=== PATIENT | female | born 1980 | race American Indian/Alaskan Native ===

== ENCOUNTER 2018-03-19 07:47 | Emergency (ER) | payer SELFPAY ==
[2018-03-19] MEDS ORDERED: NACL 0.9% 1000 ML 1,000 ML IV ONE (08:09)
[2018-03-19] MEDS ORDERED: SUBLIMAZE IV ONE (08:09)
[2018-03-19] MEDS ORDERED: ZOFRAN IV ONE (08:09)
--- NOTE | 2018-03-19 08:27 | Emergency Department Report ---
HPI - General Chief Complaint: Abdominal Pain Time Seen by Provider: 03/19/18 08:05 - HPI HPI: Room 24 Patient is a 38-year-old female presenting with a chief complaint of abdominal pain. The patient states she developed epigastric abdominal pain yesterday that was sharp and constant in nature. Patient admits to nausea and vomiting but denies diarrhea. Patient denies a history of fever. Patient gives her pain score 10/10 Location: Epigastrium Duration: Constant since yesterday Quality: Sharp Severity: 10/10 Modifying factors: [see above] Context: [see above] Mode of transportation: [not driving] ED Past Medical Hx - Past Medical History Previous Medical History?: Yes Hx of Cancer: Yes (Breast CA chemo/xrt 2015) - Surgical History Past Surgical History?: No Additional Surgical History: Gastric Bypass, lumpectomy - Family History Family history: no significant - Social History Smoking Status: Never Smoker Substance Use Type: None (denies illicit drug use), Alcohol (occasional) - Medications Home Medications: Home Medications Medication Instructions Recorded Confirmed Last Taken Type Oxycodone HCl/Acetaminophen 1 each PO TID 07/28/17 07/28/17 07/27/17 History [Percocet 10/325 mg] ED Review of Systems ROS: Stated complaint: ABD PAIN Other details as noted in HPI Constitutional: denies: fever Eyes: denies: eye pain ENT: denies: throat pain Respiratory: no symptoms reported Cardiovascular: denies: chest pain Endocrine: no symptoms reported Gastrointestinal: abdominal pain, nausea, vomiting. denies: diarrhea Genitourinary: denies: dysuria Musculoskeletal: denies: back pain Neurological: denies: headache Physical Exam - Physical Exam Vital Signs: Vital Signs 03/19/18 07:55 Temperature 97.6 F Pulse Rate 104 H Respiratory 18 Rate Blood Pressure 112/82 O2 Sat by Pulse 100 Oximetry Physical Exam: GENERAL: The patient is well-developed well-nourished female lying on stretcher appearing to be in moderate discomfort. [] HEENT: Normocephalic. Atraumatic. Extraocular motions are intact. Patient has moist mucous membranes. NECK: Supple. Trachea midline CHEST/LUNGS: Clear to auscultation. There is no respiratory distress noted. HEART/CARDIOVASCULAR: Regular. There is no tachycardia. There is no gallop rub or murmur. ABDOMEN: Abdomen is soft, with tenderness to palpation in the right upper quadrant, midepigastric and left upper quadrants. Lower abdomen is soft and nontender to palpation. Patient has normal bowel sounds. There is no abdominal distention. SKIN: There is no rash. There is no edema. There is no diaphoresis. NEURO: The patient is awake, alert, and oriented. The patient is cooperative. The patient has normal speech MUSCULOSKELETAL: There is no evidence of acute injury. ED Course Vital Signs 03/19/18 07:55 Temperature 97.6 F Pulse Rate 104 H Respiratory 18 Rate Blood Pressure 112/82 O2 Sat by Pulse 100 Oximetry - Consultations Consultation #1: 03/19/18 11:02 Surgery paged 03/19/18 11:[address] Trujillo- requested bariatric surgery. Consult given patient's history of gastric bypass. Call back if bariatric surgery is unavailable 03/19/18 12:[address] Trujillo- will evaluate patient 03/19/18 14:05 Dr Cassandra anderson Consultation #2: 03/19/18 11:[address] Becker's PA- Dr. Becker is at [facility] today in the OR and is currently unavailable Consultation #3: 03/19/18 15:20 [facility] transfer line called- no bariatric surgery at [facility] 03/19/18 15:26 [facility] transfer line called- will call back with physician ED Medical Decision Making - Lab Data Result diagrams: 03/19/18 08:41 03/19/18 08:41 Laboratory Tests 03/19/18 03/19/18 03/19/18 08:41 08:41 08:41 WBC 6.2 RBC 4.26 Hgb 12.9 Hct 39.0 MCV 92 MCH 30 MCHC 33 RDW 14.0 Plt Count 251 Lymph % (Auto) 22.3 [place] % (Auto) 7.3 Eos % (Auto) 0.4 Baso % (Auto) 0.7 Lymph # 1.4 [place] # 0.5 Eos # 0.0 Baso # 0.0 Seg Neutrophils % 69.3 Seg Neutrophils # 4.3 Sodium 141 Potassium 3.9 Chloride 103.7 Carbon Dioxide 25 Anion Gap 16 BUN 7 Creatinine 0.7 Estimated GFR > 60 BUN/Creatinine Ratio 10 Glucose 109 H Calcium 9.5 Total Bilirubin 0.70 AST 19 ALT < 5 L Alkaline Phosphatase 52 Total Creatine Kinase CK-MB (CK-2) CK-MB (CK-2) Rel Index Troponin T Total Protein 7.7 Albumin 4.3 Albumin/Globulin Ratio 1.3 Lipase 39 HCG, Qual Urine Color Urine Turbidity Urine pH Ur Specific [place] Urine Protein Urine Glucose (UA) Urine Ketones Urine Blood Urine Nitrite Urine Bilirubin Urine Urobilinogen Ur Leukocyte Esterase Urine WBC (Auto) Urine RBC (Auto) U Epithel Cells (Auto) 03/19/18 03/19/18 03/19/18 08:41 08:41 11:32 WBC RBC Hgb Hct MCV MCH MCHC RDW Plt Count Lymph % (Auto) [place] % (Auto) Eos % (Auto) Baso % (Auto) Lymph # [place] # Eos # Baso # Seg Neutrophils % Seg Neutrophils # Sodium Potassium Chloride Carbon Dioxide Anion Gap BUN Creatinine Estimated GFR BUN/Creatinine Ratio Glucose Calcium Total Bilirubin AST ALT Alkaline Phosphatase Total Creatine Kinase 124 CK-MB (CK-2) 1.2 CK-MB (CK-2) Rel Index 0.9 Troponin T < 0.010 Total Protein Albumin Albumin/Globulin Ratio Lipase HCG, Qual Negative Urine Color Yellow Urine Turbidity Clear Urine pH 8.0 H Ur Specific [place] 1.053 H Urine Protein <15 mg/dl Urine Glucose (UA) Neg Urine Ketones 20 Urine Blood Neg Urine Nitrite Neg Urine Bilirubin Neg Urine Urobilinogen 4.0 Ur Leukocyte Esterase Neg Urine WBC (Auto) < 1.0 Urine RBC (Auto) 2.0 U Epithel Cells (Auto) 4.0 - EKG Data -: EKG Interpreted by Co EKG shows normal: sinus rhythm Rate: normal - EKG Data When compared to previous EKG there are: previous EKG unavailable Interpretation: nonspecific ST-T wave [place] (T-wave inversion in lead V3) - Radiology Data Radiology results: report reviewed (CT abdomen and pelvis), image reviewed (CT abdomen and pelvis) [facility] [address] [place] [address] Cat Scan Report Signed Patient: EDWINA RAYGOZA MR#: [id number] : 1980 Acct:[id number] Age/Sex: 38 / F ADM Date: 03/19/18 Loc: ED Attending Dr: Ordering Physician: NADEEN HERNÁNDEZ MD Date of Service: 03/19/18 Procedure(s): CT abdomen pelvis w con Accession Number(s): [id number] cc: NADEEN HERNÁNDEZ MD CT pelvis with contrast: Abdominal pain. [place]-en-Y bypass and breast cancer. Following administration of contrast transverse images are obtained the lower chest to the ischium with coronal and sagittal 2-D reformatted images. Comparison made to prior exam on July 28, 2017. The visualized lung bases are clear. Surgical changes of the [place]-en-Y bypass are noted. The SMV has a swirled appearance wrapping to the left and anterior relative to the the SMA however no evidence of vascular or bowel obstruction is noted. The abdominal and retroperitoneal organs otherwise appear generally unremarkable. The bowel is unopacified and there is a moderate volume of fecal matter in the proximal colon. The appendix is not visualized. The abdominal aorta and its branches appear generally unremarkable. There is no adenopathy. The patient reproductive organs are present. The findings described above appear generally unchanged from her prior examination. Impressions: 1. Gastric bypass changes consistent with [place]-en-Y stable since prior exam. 2. Possible internal hernia with no evidence of obstruction generally unchanged from prior exam. Transcribed By: LIA Dictated By: BEKAH MARES MD Electronically Authenticated By: BEKAH MARES MD Signed Date/Time: 03/19/18 1023 DD/ 1011 TD/TT: 03/19/18 1023 - Differential Diagnosis pancreatitis, gastritis, small bowel destruction, cholecystitis Critical care attestation.: If time is entered above; I have spent that time in minutes in the direct care of this critically ill patient, excluding procedure time. ED Disposition Clinical Impression: Acute abdominal pain Disposition: -07 LEFT AGAINST MED ADVICE Is pt being admited?: No Does the pt Need Aspirin: No Condition: Undetermined Instructions: Abdominal Pain (ED) Referrals: PRIMARY CARE, [Primary Care Provider] - 3-5 Days Time of Disposition: 15:59 (patient left AMA)
[2018-03-19] MEDS ORDERED: MORPHINE IV ONE (08:47)
[2018-03-19] MEDS ORDERED: DILAUDID IV ONE ×4 (08:48→14:59)
[2018-03-19 08:51] LABS: Basophils % (Auto) 0.7 % (0.0-1.8); Eosinophils % (Auto) 0.4 % (0.0-4.3); Hemoglobin 12.9 gm/dl (10.1-14.3); Lymphocytes # (Auto) 1.4 K/mm3 (1.2-5.4); Lymphocytes % (Auto) 22.3 % (13.4-35.0); Mean Corpuscular HGB Conc 33 % (30-34); Mean Corpuscular Hemoglobin 30 pg (28-32); Mean Corpuscular Volume 92 fl (79-97); Monocytes # (Auto) 0.5 K/mm3 (0.0-0.8); Monocytes % (Auto) 7.3 % (0.0-7.3); Platelet Count 251 K/mm3 (140-440); Red Blood Count 4.26 M/mm3 (3.65-5.03)
[2018-03-19 09:05] LABS: Creatine Kinase MB 1.2 ng/mL (0.0-4.0)
[2018-03-19 09:07] LABS: Albumin 4.3 g/dL (3.9-5); BUN/Creatinine Ratio 10; Blood Urea Nitrogen 7 mg/dL (7-17); Calcium 9.5 mg/dL (8.4-10.2); Hemolysis Index 7
[2018-03-19 09:14] LABS: Alanine Aminotransferase < 5 units/L (7-56)
[2018-03-19] MEDS ORDERED: BENADRYL IV ONE (09:43)
[2018-03-19] MEDS ORDERED: BENADRYL ONE (09:46)
--- NOTE | 2018-03-19 10:41 | Cat Scan Report ---
CT pelvis with contrast: Abdominal pain. [place]-en-Y bypass and breast cancer. Following administration of contrast transverse images are obtained the lower chest to the ischium with coronal and sagittal 2-D reformatted images. Comparison made to prior exam on July 28, 2017. The visualized lung bases are clear. Surgical changes of the [place]-en-Y bypass are noted. The SMV has a swirled appearance wrapping to the left and anterior relative to the the SMA however no evidence of vascular or bowel obstruction is noted. The abdominal and retroperitoneal organs otherwise appear generally unremarkable. The bowel is unopacified and there is a moderate volume of fecal matter in the proximal colon. The appendix is not visualized. The abdominal aorta and its branches appear generally unremarkable. There is no adenopathy. The patient reproductive organs are present. The findings described above appear generally unchanged from her prior examination. Impressions: 1. Gastric bypass changes consistent with [place]-en-Y stable since prior exam. 2. Possible internal hernia with no evidence of obstruction generally unchanged from prior exam.
[2018-03-19 11:59] LABS: Bilirubin,Urine NEG (Negative); Blood,Urine NEG (Negative); Color,Urine Yellow (Yellow); Protein,Urine <15 mg/dL mg/dL (Negative); WBC,Urine < 1.0 /HPF (0.0-6.0)
--- NOTE | 2018-03-19 13:44 | Consultation ---
History of Present Illness Consult date: 03/19/18 Chief complaint: abdominal pain - History of present illness History of present illness: 38 yo F s/p Laparoscopic RNY gastric bypass in 2006 at [facility] presents for c/o epigastric abdominal pain for the last 24 hours. She states the pain started yesterday, feels like gas pains, and has gradually gotten worse. The pain does not radiate and is not associated with food. She has lost over 100 lbs since the surgery. She does not smoke. She is passing flatus and having bowel movements. Last BM was this am. She had associated nausea and emesis of clear fluid this am. She has had pain like this in the past in Jul 2017 for which she was seen by Dr. Gann at [facility]. The patient was found to have a nonobstructing internal hernia on CT scan A/P. A diagnostic laparoscopy was recommended to the patient but she refused surgery. Her abdomen remained benign and she was having bowel function. She was discharged with instructions to follow up with bariatric surgery. She has not followed up. \ Past History Past Medical History: other (obseity) Past Surgical History: Other (Lap RNY Gastric bypass, tubal ligation) Social history: no significant social history, alcohol abuse (social) Family history: no significant family history Medications and Allergies Allergies Allergy/AdvReac Type Severity Reaction Status Date / Time No Known Allergies Allergy Unverified 07/28/17 03:23 Home Medications Medication Instructions Recorded Confirmed Last Taken Type Oxycodone HCl/Acetaminophen 1 each PO TID 07/28/17 07/28/17 07/27/17 History [Percocet 10/325 mg] Review of Systems All systems: negative (10 pt ROS performed and negative except for that listed in HPI) Exam Vital Signs Temp Pulse Resp BP Pulse Ox 97.6 F 104 H 18 112/82 100 03/19/18 07:55 03/19/18 07:55 03/19/18 07:55 03/19/18 07:55 03/19/18 07:55 Narrative exam: Gen: AAOx3. NAD ENT: no scleral icterus or conjunctival pallor CV: S1, S2+ Resp: even and unlabored Abd: soft, ND, + epigastric tenderness to deep palpation. No r/r/g. well healed surgical scars Ext: no c/c/e Results - Labs 03/19/18 08:41 03/19/18 08:41 Abnormal lab results 03/19/18 03/19/18 Range/Units 08:41 11:32 Glucose 109 H (65-100) mg/dL ALT < 5 L (7-56) units/L Urine pH 8.0 H (5.0-7.0) Ur Specific [place] 1.053 H (1.003-1.030) Diabetes panel 03/19/18 Range/Units 08:41 Sodium 141 (137-145) mmol/L Potassium 3.9 (3.6-5.0) mmol/L Chloride 103.7 (98-107) mmol/L Carbon Dioxide 25 (22-30) mmol/L BUN 7 (7-17) mg/dL Creatinine 0.7 (0.7-1.2) mg/dL Glucose 109 H (65-100) mg/dL Calcium 9.5 (8.4-10.2) mg/dL AST 19 (5-40) units/L ALT < 5 L (7-56) units/L Alkaline Phosphatase 52 (35-129) units/L Total Protein 7.7 (6.3-8.2) g/dL Albumin 4.3 (3.9-5) g/dL Calcium panel 03/19/18 Range/Units 08:41 Calcium 9.5 (8.4-10.2) mg/dL Albumin 4.3 (3.9-5) g/dL Pituitary panel 03/19/18 Range/Units 08:41 Sodium 141 (137-145) mmol/L Potassium 3.9 (3.6-5.0) mmol/L Chloride 103.7 (98-107) mmol/L Carbon Dioxide 25 (22-30) mmol/L BUN 7 (7-17) mg/dL Creatinine 0.7 (0.7-1.2) mg/dL Glucose 109 H (65-100) mg/dL Calcium 9.5 (8.4-10.2) mg/dL Adrenal panel 03/19/18 Range/Units 08:41 Sodium 141 (137-145) mmol/L Potassium 3.9 (3.6-5.0) mmol/L Chloride 103.7 (98-107) mmol/L Carbon Dioxide 25 (22-30) mmol/L BUN 7 (7-17) mg/dL Creatinine 0.7 (0.7-1.2) mg/dL Glucose 109 H (65-100) mg/dL Calcium 9.5 (8.4-10.2) mg/dL Total Bilirubin 0.70 (0.1-1.2) mg/dL AST 19 (5-40) units/L ALT < 5 L (7-56) units/L Alkaline Phosphatase 52 (35-129) units/L Total Protein 7.7 (6.3-8.2) g/dL Albumin 4.3 (3.9-5) g/dL - Imaging CT scan - abdomen: report reviewed, image reviewed CT scan - pelvis: report reviewed, image reviewed Assessment and Plan 38 yo F with abdominal pain 1. hx of gastric bypass 2. internal hernia - NONOBSTRUCTING on CT scan A/P Ct Scan reviewed and images and report compared to Ct A/P from 07/2017. There is no change in swirling of the SMA/SMV mesentery. There is no bowel obstruction. No free fluid or free air. The patient has stable vital signs, normal WBC and electrolytes. She does not have evidence of peritonitis on exam. Plan: The patient is stable without evidence of obstruction of CT scan. However, she does have an internal hernia related to a history of RNY gastric bypass. I feel that her repeated epigastric abdominal pain may be secondary to internal hernia. Because she is stable and there is no evidence of obstruction, I recommend the patient be evaluated by a bariatric surgeon for possible diagnostic laparoscopy and reduction of the internal hernia. Per ER we do not have bariatric surgery currently available at the hospital and therefore, the patient should be transferred to a facility with bariatric surgery service. I discussed this with Dr. Tsai. I discussed this with the patient at great length. Her was present in the room. I explained to her that although this is not an emergency, she will possible need intervention because the finding of an internal hernia on Ct scan. I explained that since this is not an emergency, it is best that she is evaluated and treated by bariatric surgery. She understands and all questions were answered. The patient stated that she was feeling better and that she was considering leaving because she has a flight tonight and will return Thursday. I advised her to stay and be transferred. She will think about the options and make a decision. She understands that her condition could worsen.
[2018-03-19] MEDS ORDERED: NORCO 5/325 ONE (14:32)
[2018-03-19] MEDS ORDERED: NORCO 5/325 PO ONE (14:42)
[2018-03-19 15:58] VITALS: BP 97/58
== END 2018-03-19 15:58 | disposition left against medical advice (07) ==
LOC: ED 07:47
DX: R10.13 Epigastric pain (principal); R11.2 Nausea with vomiting, unspecified
CPT/HCPCS: 36415; 74177; 80053; 81001; 82550; 82553; 83690; 84484; 84703; 85025; 93005; 93010; 96361; 96374; 96375; 96376; 99284; J1170; J1200; J2405; J3010; J7030; Q9967

== ENCOUNTER 2019-05-25 18:00 | Emergency (ER) | payer OTHER ==
--- NOTE | 2019-05-25 18:09 | Emergency Department Report ---
HPI - General Chief Complaint: Arrhythmia/Palpitations Time Seen by Provider: 05/25/19 18:06 - HPI HPI: 39-year-old -[place] female presents to the emergency department with a complaint of palpitations with a rapid heart rate and some shortness of breath. She says that this has been going on all day. She says that she has had these symptoms previously but they were never this bad and she thought they were related to anxiety and she has never seen a physician or been to the emergency department regarding them. She has a past medical history of breast cancer in 2013 that is currently in remission and gastric bypass in 2006. She has not ta rosendo anything for her symptoms prior to presentation. She denies any tobacco or illicit drug use. No primary care physician. ED Past Medical Hx - Past Medical History Additional medical history: Breast CA, gastric bypass - Surgical History Additional Surgical History: Gastric Bypass, lumpectomy - Social History Smoking Status: Never Smoker Substance Use Type: None (denies illicit drug use), Alcohol (occasional) - Medications Home Medications: Home Medications Medication Instructions Recorded Confirmed Last Taken Type Oxycodone HCl/Acetaminophen 1 each PO TID 07/28/17 07/28/17 07/27/17 History [Percocet 10/325 mg] ED Review of Systems ROS: Stated complaint: RAPID HEART BEAT Other details as noted in HPI Comment: All other systems reviewed and negative Constitutional: denies: chills, fever Eyes: denies: eye pain, vision change ENT: denies: ear pain, throat pain Respiratory: shortness of breath. denies: cough Cardiovascular: palpitations. denies: chest pain, edema Gastrointestinal: denies: abdominal pain, vomiting Genitourinary: denies: dysuria, discharge Musculoskeletal: denies: back pain, arthralgia Skin: denies: rash, lesions Neurological: denies: headache, weakness Physical Exam - Physical Exam Physical Exam: GENERAL: The patient is well-developed well-nourished. HENT: Normocephalic. Atraumatic. Patient has moist mucous membranes. EYES: Extraocular motions are intact. NECK: Supple. Trachea is midline. CHEST/LUNGS: Clear to auscultation. There is no respiratory distress noted. HEART/CARDIOVASCULAR: Regular. There is no tachycardia. There is no murmur. ABDOMEN: Abdomen is soft, nontender. Patient has normal bowel sounds. There is no abdominal distention. SKIN: Skin is warm and dry. NEURO: The patient is awake, alert, and oriented. The patient is cooperative. The patient has no focal neurologic deficits. Normal speech. MUSCULOSKELETAL: There is no tenderness or deformity. There is no evidence of acute injury. ED Medical Decision Making - Lab Data Result diagrams: 05/25/19 18:18 05/25/19 18:18 - EKG Data -: EKG Interpreted by Me EKG shows normal: sinus rhythm, axis, intervals, QRS complexes, ST-T waves Rate: tachycardia (108 bpm) - EKG Data When compared to previous EKG there are: previous EKG unavailable Interpretation: normal EKG (with tachy 108 bpm) - Radiology Data Radiology results: image reviewed interpreted by me: Chest x-ray does not show any acute process. There are no pleural effusions, obvious pneumonia and there is no pneumothorax. - Medical Decision Making This patient presents with the complaint of some palpitations and intermittent shortness of breath. She initially arrived with a heart rate of about 170. However her heart rate came down to about 110 at a time she made it to ER bed 18. Her EKG shows some sinus tachycardia with a heart rate of about 108. There is no signs of ST elevation [place] or dysrhythmia. Chest x-ray is unremarkable. Patient labs have been unremarkable CBC, metabolic panel, d-dimer, troponin and thyroid function. Patient was reevaluated multiple times over about 2 hours and there was no return of any tachycardia. However, we attempted to ambulate the patient around the emergency department and the patient's heart rate shoots up to about 150-160 bpm whenever she stands, walks, or exerts herself. For this reason, I spoke with cardiology, who recommended a 23 hour observation stay. I later found out that the patient has [employer] insurance. I spoke with Dr. Crawford of the [facility] transfer line and the patient was accepted for transfer to [facility] [place] under Dr Carlson. - Differential Diagnosis anemia, hyperthyroidism, dysrhythmia, hypoglycemia Critical Care Time: No Critical care attestation.: If time is entered above; I have spent that time in minutes in the direct care of this critically ill patient, excluding procedure time. ED Disposition Clinical Impression: Palpitations, Tachycardia Disposition: DC/TX-70 ANOTHER TYPE HLTHCARE Is pt being admited?: No Condition: Fair Referrals: PRIMARY CARE, [Primary Care Provider] - 3-5 Days
[2019-05-25 18:37] LABS: Basophils % (Auto) 0.6 % (0.0-1.8); Eosinophils # (Auto) 0.1 K/mm3 (0.0-0.4); Eosinophils % (Auto) 3.3 % (0.0-4.3); Hematocrit 38.7 % (30.3-42.9); Hemoglobin 12.6 gm/dl (10.1-14.3); Lymphocytes # (Auto) 1.6 K/mm3 (1.2-5.4); Lymphocytes % (Auto) 38.6 % (13.4-35.0); Mean Corpuscular HGB Conc 33 % (30-34); Mean Corpuscular Volume 93 fl (79-97); Monocytes # (Auto) 0.5 K/mm3 (0.0-0.8); Monocytes % (Auto) 11.8 % (0.0-7.3); Platelet Count 223 K/mm3 (140-440); Red Blood Count 4.17 M/mm3 (3.65-5.03); Red Cell Distribution Width 15.2 % (13.2-15.2)
[2019-05-25 18:46] LABS: INR 0.82 (0.87-1.13)
[2019-05-25 19:03] LABS: Alanine Aminotransferase 13 units/L (7-56); Albumin 3.7 g/dL (3.9-5); BUN/Creatinine Ratio 11; Blood Urea Nitrogen 11 mg/dL (7-17); Calcium 8.9 mg/dL (8.4-10.2); Hemolysis Index 19
[2019-05-25] MEDS ORDERED: SODIUM CHLORIDE 0.9% 1000 ML 1,000 ML IV ONE (19:04)
--- NOTE | 2019-05-25 19:06 | XRay Report ---
CHEST 1 VIEW INDICATION: Palpitations. COMPARISON: 07/28/2017 FINDINGS: Support devices: None. Heart: Within normal limits. Lungs/Pleura: No acute air space or interstitial disease. Additional findings: None. IMPRESSION: 1. No acute findings. Signer Name: Matthew Morales MD Signed: 05/25/2019 7:01 PM Workstation Name: [id number]
[2019-05-25] MEDS ORDERED: MORPHINE 4 MG/1 ML INJ IV ONE ×2 (19:24→21:59)
[2019-05-25 21:10] LABS: Bilirubin,Urine NEG (Negative); Blood,Urine NEG (Negative); Color,Urine Yellow (Yellow); Mucus,Urine FEW /HPF; Protein,Urine <15 mg/dL mg/dL (Negative); Urobilinogen,Urine < 2.0 mg/dL (<2.0); WBC,Urine < 1.0 /HPF (0.0-6.0)
[2019-05-25 21:23] LABS: Amphetamine Screen,Urine PRESUMPTIVE NEGATIVE; Benzodiazepines Screen,Urine PRESUMPTIVE NEGATIVE; Cannabinoid Screen,Urine PRESUMPTIVE NEGATIVE; Cocaine Screen,Urine PRESUMPTIVE NEGATIVE; Methadone Screen,Urine PRESUMPTIVE NEGATIVE; Opiate Screen,Urine PRESUMPTIVE NEGATIVE
[2019-05-25 21:53] VITALS: BP 123/79
== END 2019-05-25 22:38 | disposition other institution (70) ==
LOC: ED 18:00
DX: R00.0 Tachycardia, unspecified (principal); R00.2 Palpitations; Z98.890 Other specified postprocedural states; Z79.899 Other long term (current) drug therapy
CPT/HCPCS: 36415; 71045; 80053; 80307; 81001; 84443; 84484; 84703; 85025; 85379; 85610; 93005; 93010; 96374; 96375; 99285; J2270; J7030